=== PATIENT | male | born 1945 | race Caucasian/White ===

== ENCOUNTER 2016-07-23 10:39 | Day surgery (SDC) | payer BC ==
[~2016-07-23 10:39] MED LIST: Buffered Lidocaine 1% SYR 3ML* 3 ML/SYR SYRINGE INTRADERM ONE; Famotidine IV* 10 MG/ML 2 ML (20 mg) IV ONE; Morphine INJ* 2 MG/ML 1 ML CARPUJECT IV PRN; PROCHLORPERAZINE INJ 5 MG/ML 2 ML VIAL IV PRN; fentaNYL* 50 MCG/ML 2 ML VIAL (100 MCG VIAL) IV PRN; oxyCODONE/Acetamin 5/325 MG* TAB PO PRN
[2016-07-23] MEDS ORDERED: ceFAZolin 2 GM PREMIX (*) 2 GM/50 ML BAG IVPB ONE (11:00)
[2016-07-23] MEDS ORDERED: Famotidine IV* 10 MG/ML 2 ML (20 mg) ONE (11:00)
[2016-07-23] MEDS ORDERED: Midazolam* 1 MG/ML 5 ML VIAL (5 MG) ONE (11:21)
[2016-07-23] MEDS ORDERED: fentaNYL* 50 MCG/ML 5 ML VIAL (250 MCG VIAL) ONE (11:21)
[2016-07-23] MEDS ORDERED: KETAMINE HCL* 50 MG/ML 10 ML VIAL ONE (11:21)
[2016-07-23] MEDS ORDERED: Bupivacaine 0.5% W/EPI SDV* 30 ML VIAL ONE (12:01)
[2016-07-23] MEDS ORDERED: Propofol* 10 MG/ML 20 ML BTL IV PUSH ONE (12:24)
[2016-07-23] MEDS ORDERED: Lidocaine 2% PF * 5 ML VIAL ONE (12:24)
[2016-07-23] MEDS ORDERED: Ondansetron INJ* 2 MG/ML VIAL ONE (12:24)
[2016-07-23] MEDS ORDERED: PROCHLORPERAZINE INJ 5 MG/ML 2 ML VIAL ONE (12:24)
[2016-07-23] MEDS ORDERED: Glycopyrrolate IV* 0.2 MG/ML 1 ML VIAL ONE ×2 (12:24→12:56)
[2016-07-23] MEDS ORDERED: Neostigmine Methylsulfate* 2 MG/2 ML SYRINGE ONE (12:24)
[2016-07-23] MEDS ORDERED: Metoprolol Tartrate IV* 1 MG/ML 5 ML VIAL ONE (12:25)
[2016-07-23] MEDS ORDERED: EPHEDrine (Pressors)* 50 MG/ML VIAL ONE (12:42)
[2016-07-23] MEDS ORDERED: Ketorolac INJ* 30 MG/ML 1 ML VIAL ONE (12:57)
[2016-07-23] MEDS ORDERED: Morphine INJ* 10 MG/ML 1 ML CARPUJECT ONE (13:04)
[2016-07-23] MEDS ORDERED: hydrALAZINE IV* 20 MG/ML VIAL ONE (13:16)
[2016-07-23] MEDS ORDERED: Insulin REGULAR(*) 1 UNITS UNIT SUBCUT ONE (13:39)
[2016-07-23] MEDS ORDERED: Insulin REGULAR(*) 1 UNITS UNIT ONE (13:41)
--- NOTE | 2016-07-23 14:25 | PN ---
Progress Note - Progress Note Note: Brief Operative Note: Preop dx: symptomatic cholelithiasis Postop dx: same Procedure: laparascopic cholecystectomy Anesthesia: GET Surgeon: Shoaib Asst: TRACY Prado; BARRETT Pisano EBL: < 100 ml fluids: drains: none findings: dictated
[2016-07-23] MEDS ORDERED: oxyCODONE/Acetamin 5/325 MG* TAB ONE (15:03)
[2016-07-23 15:42] VITALS: BP 138/60
--- NOTE | 2016-07-24 23:19 | OP ---
DATE OF OPERATION: 07/23/16 - [facility] DATE OF : 47 SURGEON: Ned Cramer MD METAL FINISH INSPECTOR: TRACY Grier ANESTHESIOLOGIST: Gómez Weeks MD ANESTHESIA: General endotracheal. PRE-OP DIAGNOSIS: Symptomatic gallstones. POST-OP DIAGNOSIS: Symptomatic gallstones. OPERATIVE PROCEDURE: Laparoscopic cholecystectomy. ESTIMATED BLOOD LOSS: Minimal. IV FLUIDS: Crystalloid. SPECIMENS: Gallbladder and contents. DRAINS: None. COMPLICATIONS: None. COUNTS: The instrument, needle, and sponge counts were correct. DESCRIPTION OF PROCEDURE: The patient was brought to the operating room and placed on the table supine. Sequential compression devices were placed in both lower extremities. General anesthesia was administered. The abdomen was prepped and draped in the usual sterile fashion. Time-out was performed. Local anesthetic was infiltrated into the skin and soft tissue prior to making each incision. Entry to the abdomen was through a transumbilical vertical incision accommodating a 5-mm optical trocar. After accessing the peritoneal cavity, carbon dioxide was insufflated to a pressure of 15 mmHg. Under direct visualization, a 5- mm trocar was placed in the subxiphoid position and two 5- mm trocars were placed in the right upper quadrant. The gallbladder was noted to be distended and large, but no acute changes. The gallbladder fundus was grasped and retracted superiorly and the infundibulum was retracted laterally and inferiorly and the peritoneum investing the gallbladder was incised using a combination of sharp dissection. The peritoneum was incised along the medial and lateral aspects of the infundibulum and the dissection proceeded to identify the infundibulocystic duct junction. Additionally, the cystic artery was dissected out bluntly and after each structure was well identified, a critical view obtained, the structures were each doubly clipped and divided and the gallbladder was then grasped at the cystic duct stump and retracted superiorly and the hook cautery was used to divide the gallbladder from its attachments to the liver bed. Most of the gallbladder was freed and it was placed in the endoscopic retrieval bag and retrieved through the subxiphoid port site. The inspection of the liver bed revealed hemostasis to be excellent. Lavage of the abdomen was performed until clear. The clips were noted to be intact and hemostatic. Ports were removed under direct visualization. Carbon dioxide was released. The incisions were all closed with 4-0 Monocryl to approximate the skin in a subcuticular fashion, and Steri- Strips were applied. The patient tolerated the procedure well, was extubated, and transferred to recovery room in stable condition. CC: Trey Irizarry MD* [id number]/[facility] #: [id number] MTDD
== END 2016-07-23 16:40 | disposition home or self-care (01) ==
LOC: OR 10:39
PROVIDERS: ATTEND Surgery
DX: K80.10 Calculus of gallbladder with chronic cholecystitis without obstruction (principal); E11.8 Type 2 diabetes mellitus with unspecified complications; Z79.84 Long term (current) use of oral hypoglycemic drugs; I25.10 Atherosclerotic heart disease of native coronary artery without angina pectoris; Z95.5 Presence of coronary angioplasty implant and graft; I10 Essential (primary) hypertension; E03.9 Hypothyroidism, unspecified
CPT/HCPCS: 88304; A9270-GY; J0360; J0690; J0780; J1885; J2250; J2270; J2405; J2704; J3010; J3490

== ENCOUNTER 2017-04-29 11:57 | Day surgery (SDC) | payer BC ==
[~2017-04-29 11:57] MED LIST changes: +Buffered Lidocaine 0.9% SYRIN* 5 ML/SYR SYRINGE INTRADERM ONE; -Buffered Lidocaine 1% SYR 3ML* 3 ML/SYR SYRINGE INTRADERM ONE; -Famotidine IV* 10 MG/ML 2 ML (20 mg) IV ONE; -Morphine INJ* 2 MG/ML 1 ML CARPUJECT IV PRN; -PROCHLORPERAZINE INJ 5 MG/ML 2 ML VIAL IV PRN; -fentaNYL* 50 MCG/ML 2 ML VIAL (100 MCG VIAL) IV PRN; -oxyCODONE/Acetamin 5/325 MG* TAB PO PRN
[2017-04-29] MEDS ORDERED: ceFAZolin 2 GM PREMIX (*) 2 GM/50 ML BAG IVPB ONE (12:05)
[2017-04-29] MEDS ORDERED: Buffered Lidocaine 0.9% SYRIN* 5 ML/SYR SYRINGE ONE (12:05)
[2017-04-29] MEDS ORDERED: Lidocaine 1% MPF wEPI 200,000* 30 ML SDV ONE (14:51)
[2017-04-29] MEDS ORDERED: Methylene Blue 0.5 %* 50 MG/10 ML AMP IV ONE (14:51)
[2017-04-29] MEDS ORDERED: Mineral Oil Sterile, TOPICAL* 25 ML BTL ONE (14:51)
[2017-04-29] MEDS ORDERED: Bupivacaine 0.25% SDV* 30 ML ONE (14:52)
[2017-04-29] MEDS ORDERED: Midazolam* 1 MG/ML 2 ML VIAL (2 MG) ONE (15:11)
[2017-04-29] MEDS ORDERED: fentaNYL* 50 MCG/ML 2 ML VIAL (100 MCG VIAL) ONE (15:11)
[2017-04-29] MEDS ORDERED: Propofol* 10 MG/ML 20 ML BTL IV PUSH ONE (15:16)
[2017-04-29 17:28] VITALS: BP 151/58
== END 2017-04-29 17:29 | disposition home or self-care (01) ==
LOC: OR 11:57
PROVIDERS: ATTEND Plastic Surgery
DX: C44.42 Squamous cell carcinoma of skin of scalp and neck (principal); E11.8 Type 2 diabetes mellitus with unspecified complications; Z79.84 Long term (current) use of oral hypoglycemic drugs; I25.10 Atherosclerotic heart disease of native coronary artery without angina pectoris; I12.9 Hypertensive chronic kidney disease with stage 1 through stage 4 chronic kidney disease, or unspecified chronic kidney disease; Z95.5 Presence of coronary angioplasty implant and graft; G47.33 Obstructive sleep apnea (adult) (pediatric); Z85.828 Personal history of other malignant neoplasm of skin; E03.9 Hypothyroidism, unspecified; N18.9 Chronic kidney disease, unspecified; Z87.891 Personal history of nicotine dependence
CPT/HCPCS: 88305; 88329; A9270-GY; J0690; J2001; J2250; J2704; J3010

== ENCOUNTER 2017-09-06 16:26 | Emergency (ER) | payer BC ==
[2017-09-06 16:52] VITALS: BP 144/70
--- NOTE | 2017-09-06 17:13 | UC ---
General HPI - HPI Summary HPI Summary: c/o vomiting and diarrhea since this morning, has vomited about 4 times, last episode 90 min ago and diarrhea maybe a dozen times. He states he feels thirsty but has not attempted to take more liquids due t o fear of vomiting again. Urine has been clear. Denies fever or any prodrome symptoms yesterday except that he ate in a restaurant for lunch and have take out for dinner. is not affected. - History of Current Complaint Chief Complaint: UCGI Stated Complaint: VOMITING,DIARRHEA Time Seen by Provider: 09/06/17 17:03 Hx Obtained From: Patient, Family/Commercial Analyst Onset/Duration: Sudden Onset, Lasting Hours Timing: Intermittent Episodes Lasting: - vomiting and diarrhea Onset Severity: Moderate Current Severity: Mild Pain Intensity: 0 Associated Signs & Symptoms: Positive: Diarrhea, Vomiting - Allergy/Home Medications Allergies/Adverse Reactions: Allergies Allergy/AdvReac Type Severity Reaction Status Date / Time Calcium Channel Blocking Allergy Swelling Verified 09/06/17 16:53 Agent Dilt clonidine Allergy Unknown Verified 09/06/17 16:53 Reaction Details niacin Allergy Muscle Ache Verified 09/06/17 16:53 PMH/Surg Hx/FS Hx/Imm Hx Previously Healthy: Yes Endocrine History: Diabetes, Hypothyroidism, Dyslipidemia Cardiovascular History: Hypertension - Surgical History Surgical History: Yes Surgery Procedure, Year, and Place: Fractured pelvis as a child 1962.; Heart Cath 07/29/01 and 3 stents. appendectomy in 1963 GALLBLADDER REMOVED 07/2016 - Social History Alcohol Use: Occasionally Substance Use Type: None Smoking Status (MU): Former Smoker Amount Used/How Often: smoked for approx 30 years 1-2ppd When Did the Patient Quit Smoking/Using Tobacco: 30 years ago - Immunization History Most Recent Influenza Vaccination: 2012 Most Recent Tetanus Shot: within last couple years Most Recent Pneumonia Vaccination: last year Review of Systems Constitutional: Negative Gastrointestinal: Vomiting, Diarrhea All Other Systems Reviewed And Are Negative: Yes Physical Exam Triage Information Reviewed: Yes Appearance: Well-Appearing, No Pain Distress, Obese Vital Signs: Initial Vital Signs Temp 98.1 F 09/06/17 16:47 Pulse 77 09/06/17 16:47 Resp 16 09/06/17 16:47 BP 144/70 09/06/17 16:47 Pulse Ox 97 09/06/17 16:47 Vital Signs Reviewed: Yes Eyes: Positive: Conjunctiva Clear ENT: Positive: Hearing grossly normal, Pharynx normal, TMs normal Neck: Positive: Supple, Nontender, No Lymphadenopathy Respiratory: Positive: Chest non-tender, Lungs clear, Normal breath sounds, No respiratory distress Cardiovascular: Positive: RRR, Pulses Normal, Brisk Capillary Refill, Other: - systolic murmur II/ Abdomen Description: Positive: Nontender, No Organomegaly, Soft Bowel Sounds: Positive: Present Course/Dx - Course Course Of Treatment: PO Fluids challenge given, patient tolerated well, denies nausea and states it satiated his thirst. Continue oral hydration at home, start liquid diet followed by bland diet, avoid caffeine or dairy - Differential Dx - Multi-Symptom Provider Diagnoses: gastroenteritis Discharge - Sign-Out/Discharge Documenting (check all that apply): Discharge - Discharge Plan Condition: Stable Disposition: HOME Patient Education Materials: Dehydration (ED), Gastroenteritis (ED) Referrals: Trey Irizarry MD [Primary Care Provider] - - Billing Disposition and Condition Condition: STABLE Disposition: HOME
== END 2017-09-06 18:33 | disposition home or self-care (01) ==
LOC: UCEAST 16:26
DX: K52.9 Noninfective gastroenteritis and colitis, unspecified (principal); E11.9 Type 2 diabetes mellitus without complications; Z79.84 Long term (current) use of oral hypoglycemic drugs; E03.9 Hypothyroidism, unspecified; E78.5 Hyperlipidemia, unspecified; I10 Essential (primary) hypertension; Z88.8 Allergy status to other drugs, medicaments and biological substances; Z87.891 Personal history of nicotine dependence
CPT/HCPCS: 99211; G0463

== ENCOUNTER 2017-12-29 14:12 | Emergency (ER) | payer BC ==
[2017-12-29 14:19] VITALS: BP 157/70
[2017-12-29] MEDS ORDERED: Ondansetron ODT TAB* 4 MG PO ONE (14:37)
--- NOTE | 2017-12-29 14:51 | UC ---
General HPI - HPI Summary HPI Summary: This is kerry Rivas documenting for attending Sidney Gooden MD. This patient is a 72 year old M presenting to [facility] accompanied by with a chief complaint of vomiting that began at 0700 today. The patient rates the pain 0/10 in severity. Symptoms aggravated by eating. Symptoms alleviated by nothing. Patient denies abd pain, lightheadedness, and CP. Pt reports having similar symptoms previously after consuming spicy food. - History of Current Complaint Chief Complaint: UCGI Stated Complaint: ABDOMINAL COMPLAINT Time Seen by Provider: 12/29/17 14:26 Hx Obtained From: Patient Onset/Duration: Sudden Onset, Lasting Hours, Still Present Timing: Constant Onset Severity: Mild Current Severity: Mild Pain Intensity: 0 Associated Signs & Symptoms: Positive: Vomiting, Other - Negative lightheadedness. Negative: Abdominal Pain, Chest Pain - Allergy/Home Medications Allergies/Adverse Reactions: Allergies Allergy/AdvReac Type Severity Reaction Status Date / Time Calcium Channel Blocking Allergy Swelling Verified 12/29/17 14:19 Agent Dilt clonidine Allergy Unknown Verified 12/29/17 14:19 Reaction Details niacin Allergy Muscle Ache Verified 12/29/17 14:19 PMH/Surg Hx/FS Hx/Imm Hx Previously Healthy: No Endocrine History: Diabetes GI/ History: Gastroesophageal Reflux - Surgical History Surgical History: Yes Surgery Procedure, Year, and Place: Fractured pelvis as a child 1962.; Heart Cath 07/29/01 and 3 stents. appendectomy in 1963 GALLBLADDER REMOVED 07/2016 - Family History Known Family History: Positive: Other - Negative anesthesia reaction - Social History Occupation: Employed Full-time Lives: With Family Alcohol Use: Occasionally Substance Use Type: None Smoking Status (MU): Former Smoker Amount Used/How Often: smoked for approx 30 years 1-2ppd When Did the Patient Quit Smoking/Using Tobacco: 30 years ago - Immunization History Most Recent Influenza Vaccination: 2013 Most Recent Tetanus Shot: within last couple years Most Recent Pneumonia Vaccination: last year Review of Systems Cardiovascular: Other - Negative CP Gastrointestinal: Vomiting, Other - Negative abd pain Neurological: Other - Negative lightheadedness All Other Systems Reviewed And Are Negative: Yes Physical Exam - Summary Physical Exam Summary: General: well-appearing, no pain distress Skin: warm, color reflects adequate perfusion, dry Head: normal Eyes: EOMI, JUANITA ENT: normal Neck: supple, nontender Respiratory: CTA, breath sounds present Cardiovascular: RRR Abdomen: soft, nontender Bowel: present Musculoskeletal: normal, strength/ROM intact Neurological: sensory/motor intact, A&O x3 Psychological: affect/mood appropriate Triage Information Reviewed: Yes Vital Signs: Initial Vital Signs Temp 97.8 F 12/29/17 14:16 Pulse 70 12/29/17 14:16 Resp 18 12/29/17 14:16 BP 157/70 12/29/17 14:16 Pulse Ox 99 12/29/17 14:16 Vital Signs Reviewed: Yes Course/Dx - Course Course Of Treatment: ABD SOFT AND NON TENDER ON EXAM. F/U PMD IF NOT COMPLETELY IMPROVED; RECHECK SOONER IF WORSE. - Differential Dx - Multi-Symptom Provider Diagnoses: vomiting and nausea Discharge - Sign-Out/Discharge Documenting (check all that apply): Patient Departure - Discharge Plan Condition: Stable Disposition: HOME Prescriptions: Omeprazole CAP* [Prilosec CAP* 20 MG] 20 mg PO BID #30 cap.dr Ondansetron ODT TAB* [Zofran 4 MG Odt TAB*] 4 mg PO Q6H PRN #10 tab.odt PRN Reason: Nausea Patient Education Materials: Acute Nausea and Vomiting (ED) Referrals: Trey Irizarry MD [Primary Care Provider] - Additional Instructions: FOLLOW UP WITH YOUR DOCTOR. GET RECHECKED FOR ANY WORSENING OF YOUR CONDITION; PAIN, FEVER, DEHYDRATION, YOU FEEL ILL OR QUESTIONS OR CONCERNS. - Billing Disposition and Condition Condition: STABLE Disposition: Home
== END 2017-12-29 14:50 | disposition home or self-care (01) ==
LOC: UCEAST 14:12
DX: R11.2 Nausea with vomiting, unspecified (principal); Z88.8 Allergy status to other drugs, medicaments and biological substances; E11.9 Type 2 diabetes mellitus without complications; Z87.891 Personal history of nicotine dependence
CPT/HCPCS: 99212; A9270-GY; G0463

== ENCOUNTER 2018-04-10 18:25 | Emergency (ER) | payer BC ==
[2018-04-10 19:31] VITALS: BP 121/67
[2018-04-10] MEDS ORDERED: Al Hydrox/Mg Hydrox/Simet LIQ* 30 ML UDC PO ONE (20:52)
[2018-04-10] MEDS ORDERED: Lidocaine 2% VISCOUS* 15 ML UDC PO ONE (20:53)
--- NOTE | 2018-04-10 21:04 | UC ---
Abdominal Pain Male HPI - HPI Summary HPI Summary: ONSET OF EPIGASTRIC BURNING, NAUSEA EARLY THIS MORNING. AROUND 7 AM HAD ONE EPISODE OF EMESIS. TOOK A ZOFRAN WHICH HELPED. ATE LIGHTLY THROUGHOUT THE DAY BUT AT 4:00PM AFTER EATING A BOWL OF SOUP HAD ANOTHER EPISODE OF EMESIS. BURNING EPIGASTRIC DISCOMFORT AND BITTER TASTE IN MOUTH HAS PERSISTED THROUGHOUT THE DAY. PATIENT HAS HAD SIMILAR SYMPTOMS INTERMITTENTLY EVERY WEEK OR SO FOR THE PAST SEVERAL MONTHS. DENIES CHEST PAIN, SHORTNESS OF BREATH, ARM PAIN, DIZZINESS. SYMPTOMS SEEM TO BE WORSENED BY SPECIFIC TYPES OF FOOD. - History of Current Complaint Chief Complaint: UCGI Stated Complaint: VOMITING Time Seen by Provider: 04/10/18 20:30 Hx Obtained From: Patient, Family/English Division Chair - Onset/Duration: Gradual Onset, Lasting Hours, Still Present Timing: Constant Severity Initially: Mild Severity Currently: Moderate Pain Intensity: 3 Pain Scale Used: 0-10 Numeric Location: Discrete At: RUQ, Epigastric Radiates: No Character: Burning Aggravating Factor(s): Food Alleviating Factor(s): Meds - ZOFRAN Associated Signs And Symptoms: Positive: Nausea, Vomiting. Negative: Fever, Cough, Chest Pain, Dizzy, Back Pain, Constipation, Blood in Stool, Urinary Symptoms, Diarrhea - Allergies/Home Medications Allergies/Adverse Reactions: Allergies Allergy/AdvReac Type Severity Reaction Status Date / Time Calcium Channel Blocking Allergy Swelling Verified 04/10/18 19:31 Agent Dilt clonidine Allergy Unknown Verified 04/10/18 19:31 Reaction Details niacin Allergy Muscle Ache Verified 04/10/18 19:31 Home Medications: Home Medications Famotidine TAB* [Pepcid 20 MG TAB*] 20 mg PO BID PRN 04/10/18 [History Confirmed 04/10/18] PMH/Surg Hx/FS Hx/Imm Hx Endocrine History: Diabetes, Hypothyroidism Cardiovascular History: Cardiac Disease - S/P STENTS, Hypertension Other Cancer History: SKIN - Surgical History Surgical History: Yes Surgery Procedure, Year, and Place: Fractured pelvis as a child 1962.; Heart Cath 07/29/01 and 3 stents. appendectomy in 1963 GALLBLADDER REMOVED 07/2016 - Family History Known Family History: Positive: Hypertension, Other - Negative anesthesia reaction - Social History Alcohol Use: Rare Substance Use Type: None Smoking Status (MU): Former Smoker Amount Used/How Often: smoked for approx 30 years 1-2ppd When Did the Patient Quit Smoking/Using Tobacco: 30 years ago - Immunization History Most Recent Influenza Vaccination: 2013 Most Recent Tetanus Shot: within last couple years Most Recent Pneumonia Vaccination: last year Review of Systems Constitutional: Negative Skin: Negative Respiratory: Negative Cardiovascular: Negative Gastrointestinal: Abdominal Pain, Vomiting, Nausea Genitourinary: Negative All Other Systems Reviewed And Are Negative: Yes Physical Exam Triage Information Reviewed: Yes Appearance: Well-Appearing, No Pain Distress, Well-Nourished Vital Signs: Initial Vital Signs Temp 97.9 F 04/10/18 19:23 Pulse 73 04/10/18 19:23 Resp 16 04/10/18 19:23 BP 121/67 04/10/18 19:23 Pulse Ox 100 04/10/18 19:23 Vital Signs Reviewed: Yes Eyes: Positive: Conjunctiva Clear ENT: Positive: Hearing grossly normal, Pharynx normal Neck: Positive: Supple Respiratory Exam: Normal Cardiovascular Exam: Normal Abdomen Description: Positive: Soft, Other: - MILDLY TENDER RUQ/EPIGASTRIUM. Negative: CVA Tenderness (R), CVA Tenderness (L), Distended, Guarding Bowel Sounds: Positive: Present Musculoskeletal: Positive: No Edema Neurological: Positive: Alert Psychological: Positive: Normal Response To Family, Age Appropriate Behavior Skin: Negative: rashes Re-Evaluation - Re-Evaluation First Eval Re-Evaluation Time: 21:27 - FEELS A BIT BETTER AFTER GI COCKTAIL. READY FOR D/C Change: Improved Abd Pain Male Course/Dx - Course Course Of Treatment: FELT IMPROVED AFTET GI COCKTAIL. ERX FOR PPI AND ZOFRAN. FOLLOW-UP GI. GO TO ED IF SX WORSEN. - Differential Dx/Clinical Impression Provider Diagnoses: GERD Discharge - Sign-Out/Discharge Documenting (check all that apply): Patient Departure All imaging exams completed and their final reports reviewed: No Studies - Discharge Plan Condition: Stable Disposition: HOME Prescriptions: Omeprazole 40 mg PO DAILY #30 capsule. Ondansetron ODT TAB* [Zofran Odt TAB*] 4 mg PO Q6H PRN #20 tab.odt PRN Reason: Nausea/Vomiting Patient Education Materials: Gastroesophageal Reflux Disease (ED) Referrals: Trey Irizarry MD [Primary Care Provider] - Additional Instructions: YOUR SYMPTOMS ARE CONSISTENT WITH REFLUX. TAKE THE REFLUX MEDICINE IN THE MORNING (IDEALLY AT LEAST 30 MINUTES BEFORE YOU EAT). EAT SLOWLY. STAY UPRIGHT AT LEAST 30 MINUTES AFTER EATING. EAT SMALLER, MORE FREQUENT MEALS OPPOSED TO LARGE INFREQUENT MEALS. AVOID POSSIBLE TRIGGER FOODS - GREASY, SPICY, ACIDIC FOODS. CAFFEINE, ALCOHOL. FOLLOW-UP WITH GI. [facility] Address: [address], [place] [address] GO TO THE ED WITHOUT FAIL IF YOU DEVELOP WORSENING ABDOMINAL PAIN, PERSISTENT NAUSEA, CHEST PAIN, TROUBLE BREATHING OR ANY OTHER CONCERNING SYMPTOMS. - Billing Disposition and Condition Condition: STABLE Disposition: Home
== END 2018-04-10 21:41 | disposition home or self-care (01) ==
LOC: UCEAST 18:25
DX: K21.9 Gastro-esophageal reflux disease without esophagitis (principal); E11.9 Type 2 diabetes mellitus without complications; I10 Essential (primary) hypertension; Z88.8 Allergy status to other drugs, medicaments and biological substances; Z95.5 Presence of coronary angioplasty implant and graft; Z87.891 Personal history of nicotine dependence
CPT/HCPCS: 99212; A9270-GY; G0463

== ENCOUNTER 2018-06-21 21:10 | Emergency (ER) | payer BC ==
[2018-06-21 21:30] VITALS: BP 138/54
[2018-06-21] MEDS ORDERED: Ondansetron ODT TAB* 4 MG PO ONE (21:38)
--- NOTE | 2018-06-21 21:43 | UC ---
Abdominal Pain Male HPI - HPI Summary HPI Summary: The patient is a 72-year-old male that developed the onset of lower abdominal pain and nausea, vomiting bout 2 PM today. He states he has had at least 20 episodes of vomiting. He is also had 3 episodes of diarrhea. He denies any blood in his vomitus or diarrhea. He has not had any fever. He has had some chills. He feels weak and dizzy currently. He states that he had his gallbladder removed and July of last year. Had an appendectomy. He had an EGD in April of last year and it showed some acid reflux. He took some Zofran but this did not help today. - History of Current Complaint Chief Complaint: UCGeneralIllness Stated Complaint: VOMTING Time Seen by Provider: 06/21/18 21:28 Hx Obtained From: Patient Onset/Duration: Sudden Onset, Lasting Hours Timing: Constant Severity Initially: Moderate Severity Currently: None Pain Intensity: 0 Pain Scale Used: 0-10 Numeric Location: Other - Has had band like lower abd pain (below umbilicus) Radiates: No Character: Cramping Aggravating Factor(s): Food Associated Signs And Symptoms: Positive: Dizzy, Decreased Appetite, Nausea, Vomiting - x20, Diarrhea - x3. Negative: Diaphoresis, Fever, Cough, Chest Pain , Back Pain, Constipation, Blood in Stool, Urinary Symptoms - Allergies/Home Medications Allergies/Adverse Reactions: Allergies Allergy/AdvReac Type Severity Reaction Status Date / Time clonidine Allergy Unknown Verified 06/21/18 21:19 Reaction Details diltiazem Allergy Swelling Verified 06/21/18 21:19 niacin Allergy Muscle Ache Verified 06/21/18 21:19 Home Medications: Home Medications Spironolactone TAB* [Aldactone TAB*] 25 mg PO DAILY 06/21/18 [History Confirmed 06/21/18] PMH/Surg Hx/FS Hx/Imm Hx Previously Healthy: Yes Endocrine History: Diabetes Cardiovascular History: Hypertension GI/ History: Gastroesophageal Reflux - Surgical History Surgical History: Yes Surgery Procedure, Year, and Place: Fractured pelvis as a child 1962.; Heart Cath 07/29/01 and 3 stents. appendectomy in 1963 GALLBLADDER REMOVED 07/2016. EGD - 04/26/2018 - Family History Known Family History: Positive: Hypertension, Other - Negative anesthesia reaction - Social History Alcohol Use: Occasionally Substance Use Type: None Smoking Status (MU): Former Smoker Amount Used/How Often: smoked for approx 30 years 1-2ppd When Did the Patient Quit Smoking/Using Tobacco: 30 years ago - Immunization History Most Recent Influenza Vaccination: 2012 Most Recent Tetanus Shot: within last couple years Most Recent Pneumonia Vaccination: last year Review of Systems All Other Systems Reviewed And Are Negative: Yes Constitutional: Positive: Negative Skin: Positive: Negative Eyes: Positive: Negative ENT: Positive: Negative Respiratory: Positive: Negative Cardiovascular: Positive: Negative Gastrointestinal: Positive: Abdominal Pain, Vomiting, Diarrhea, Nausea Genitourinary: Positive: Negative Motor: Positive: Negative Neurovascular: Positive: Negative Musculoskeletal: Positive: Negative Neurological: Positive: Negative Psychological: Positive: Negative Physical Exam Triage Information Reviewed: Yes Appearance: Well-Nourished, Ill-Appearing Vital Signs: Initial Vital Signs Temp 97.4 F 06/21/18 21:22 Pulse 78 06/21/18 21:22 Resp 16 06/21/18 21:22 BP 138/54 06/21/18 21:22 Pulse Ox 99 06/21/18 21:22 Eyes: Positive: Conjunctiva Clear ENT: Negative: Hearing grossly normal, Nasal congestion, Nasal drainage, Trismus , Muffled voice, Hoarse voice Neck: Positive: Supple Respiratory: Positive: Lungs clear, Normal breath sounds, No respiratory distress, No accessory muscle use Cardiovascular: Positive: RRR, No Murmur Abdomen Description: Positive: Soft. Negative: Nontender - RUQ tenderness, Bruit, CVA Tenderness (R), CVA Tenderness (L) Bowel Sounds: Positive: Hyperactive Musculoskeletal: Positive: ROM Intact, No Edema Neurological: Positive: Alert Psychological Exam: Normal Skin Exam: Normal Diagnostics - Laboratory Diagnostic Studies Completed/Ordered: FS 184. UA +1 protein - EKG Cardiac Rate: NL Cardiac Rhythm: Sinus: Normal Ectopy: None ST Segment: Normal Abd Pain Male Course/Dx - Course Course Of Treatment: no improvement with zofran. advised to go to ER for evaluation and care. declined EMS transport - Differential Dx/Clinical Impression Provider Diagnosis: Intractable vomiting Discharge - Sign-Out/Discharge Documenting (check all that apply): Patient Departure All imaging exams completed and their final reports reviewed: No Studies - Discharge Plan Condition: Guarded Disposition: HOME-RECOMMEND TO ED Patient Education Materials: Acute Nausea and Vomiting (ED) Referrals: Trey Irizarry MD [Primary Care Provider] - Additional Instructions: I suggest you go directly to the ER for evaluation and treatment of your symptoms - Billing Disposition and Condition Condition: GUARDED Disposition: Home-Recommend to ED
== END 2018-06-21 22:02 | disposition home or self-care (01) ==
LOC: UCEAST 21:10
DX: R11.10 Vomiting, unspecified (principal); E11.9 Type 2 diabetes mellitus without complications; I10 Essential (primary) hypertension; Z87.891 Personal history of nicotine dependence
CPT/HCPCS: 81003; 93005; 99212; A9270-GY; G0463

== ENCOUNTER 2019-04-02 03:54 | Emergency (ER) | payer BC ==
[2019-04-02 04:00] VITALS: BP 147/63
--- NOTE | 2019-04-02 04:21 | ED ---
GI/ HPI - HPI Summary HPI Summary: This pt is a 73 Y/O M presenting to [facility] with a CC of a possible UTI. He states that he has had increased frequency with intermittent dysuria and has had a fever at 102 F since yesterday 04/01/19. He states that he also has chronic hip pain for which he sees a chiropracter. He denies any new cough, headaches, SOB, and N/V. He has been taking Ibuprofen for alleviation and has had no aggravating factors. He has a PMHx of Thyroid complications, CAD, and diabetes. - History of Current Complaint Chief Complaint: EDUrogenitalProblems Time Seen by Provider: 04/02/19 04:09 Stated Complaint: UTI PER PT Hx Obtained From: Patient Onset/Duration: Started Days Ago - 1, Still Present Timing: Constant Current Severity: None Pain Intensity: 0 Associated Signs and Symptoms: Positive: Negative - cough, headaches, SOB, and N /V, Fever - 102 F, Dysuria, Cough, Other: - Increased frequency. Negative: Nausea, Vomiting Aggravating Factor(s): Nothing Alleviating Factor(s): Nothing - Allergy/Home Medications Allergies/Adverse Reactions: Allergies Allergy/AdvReac Type Severity Reaction Status Date / Time clonidine Allergy Unknown Verified 04/02/19 04:00 Reaction Details diltiazem Allergy Swelling Verified 04/02/19 04:00 niacin Allergy Muscle Ache Verified 04/02/19 04:00 PMH/Surg Hx/FS Hx/Imm Hx Previously Healthy: Yes Endocrine/Hematology History: Reports: Hx Diabetes - TYPE 2, Hx Thyroid Disease Cardiovascular History: Reports: Hx Angioplasty, Hx Coronary Artery Disease - 3 cardiac stents 2001, 1 replaced 2001, Hx Hypercholesterolemia, Hx Hypertension, Hx Valvular Heart Disease Denies: Hx Congestive Heart Failure Respiratory History: Reports: Hx Sleep Apnea Denies: Hx Asthma, Hx Chronic Obstructive Pulmonary Disease (COPD) GI History: Reports: Hx Gastroesophageal Reflux Disease, Other GI Disorders - gallbladder disease with gall stones Denies: Hx Ulcer Musculoskeletal History: Reports: Other Musculoskeletal History - plantar fascitiis (left) Sensory History: Reports: Hx Cataracts, Hx Contacts or Glasses, Hx Glaucoma, Hx Hearing Aid - RARELY WEARS THEM, 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 appendectomy in 1964 GALLBLADDER REMOVED 07/2016. EGD - 04/26/2018 Hx Anesthesia Reactions: No Infectious Disease History: No Infectious Disease History: Reports: Hx Shingles Denies: Hx Hepatitis, Hx Human Immunodeficiency Virus (HIV), Traveled Outside the [place] in Last 30 Days - Family History Known Family History: Positive: Hypertension, Other - Negative anesthesia reaction - Social History Occupation: Employed Part-time Lives: With Family Alcohol Use: Occasionally Hx Substance Use: No Substance Use Type: Reports: None Hx Tobacco Use: Yes Smoking Status (MU): Former Smoker Amount Used/How Often: smoked for approx 30 years 1-2ppd Review of Systems Positive: Fever - 102 F Positive: Shortness Of Breath, Cough Negative: Vomiting, Nausea Positive: dysuria Musculoskeletal: Other - Hip pain Negative: Headache All Other Systems Reviewed And Are Negative: Yes Physical Exam - Summary Physical Exam Summary: Constitutional: Well-developed, Well-nourished, Alert. (-) Distressed Skin: Warm, Dry HENT: Normocephalic; Atraumatic Eyes: Conjunctiva normal Neck: Musculoskeletal ROM normal neck. (-) JVD, (-) Stridor, (-) Nuchal rigidity Cardio: Rhythm regular, rate normal, Heart sounds normal; Intact distal pulses; Radial pulses are 2+ and symmetric. (-) Murmur Pulmonary/Chest wall: Effort normal. (-) Respiratory distress, (-) Wheezes, (-) Rales Abd: Soft, (-) tenderness, (-) Distension, (-) Guarding, (-) Rebound Musculoskeletal: (-) Edema, full ROM of L hip w/o tenderness or erythema Lymph: (-) Cervical adenopathy Neuro: Alert, Oriented x3 Psych: Mood and affect Normal Triage Information Reviewed: Yes Vital Signs On Initial Exam: Initial Vitals Temp Pulse Resp BP Pulse Ox 98.8 F 91 18 147/63 95 04/02/19 03:57 04/02/19 03:57 04/02/19 03:57 04/02/19 03:57 04/02/19 03:57 Vital Signs Reviewed: Yes Procedures - Sedation Patient Received Moderate/Deep Sedation with Procedure: No Diagnostics - Vital Signs Vital Signs Temp Pulse Resp BP Pulse Ox 04/02/19 03:57 98.8 F 91 18 147/63 95 - Laboratory Result Diagrams: 04/02/19 04:13 04/02/19 04:13 Lab Statement: Any lab studies that have been ordered have been reviewed, and results considered in the medical decision making process. Re-Evaluation - Re-Evaluation First Eval Re-Evaluation Time: 04:30 Comment: WBC 17, patient given ceftriaxone for presumed UTI. Second Eval Re-Evaluation Time: 06:30 Change: Improved - UA w 3+ LE. Patient has improved, has been tolerating PO, discussed with patient because he is well-appearing, tolerating by mouth and no signs of infection aside from elevated white count, he can go home. Patient is to return for worsening symptoms including decreased UOP, fevers, abdominal pain , nausea vomiting. GIGU Course/Dx - Course Course Of Treatment: 73-year-old male with a history of hypertension, coronary artery disease, thyroid problems who presents with fever and urinary frequency and burning. Physical exam well-appearing, no abdominal tenderness. We'll check labs, including CBC to assess for infection, UA. No flank tenderness. Hip w/o tenderness, erythema and full ROM do not suspect septic joint. - Diagnoses Provider Diagnoses: Pyelonephritis, UTI (urinary tract infection) Discharge ED - Sign-Out/Discharge Documenting (check all that apply): Patient Departure - discharge - Discharge Plan Condition: Stable Disposition: HOME Prescriptions: Cephalexin CAP* [Keflex CAP*] 500 mg PO QID 10 Days #40 cap Patient Education Materials: Kidney Infection (ED), Urinary Tract Infection in Older Adults (ED) Referrals: Trey Irizarry MD [Primary Care Provider] - 2 Days Additional Instructions: You were seen in the emergency department for urinary frequency and fever at home. Your labs showed an infection in your urine. You were given an antibiotic here. Please take Keflex 4 times a day for 10 days. Please return for worsening symptoms, decreased in your urine, continued fevers, if you're unable to eat or drink, vomiting or if you're concerned. This infection can spread quickly to your kidneys so if you appear worse please return to the emergency department. If any studies were not completed at the time of discharge you will be called with the relevant results. Please follow up with your primary care doctor in next 2-3 days and return to emergency department for worsening or concerning symptoms. It was a pleasure taking care of you today. - Billing Disposition and Condition Condition: STABLE Disposition: Home - Attestation Statements Document Initiated by [place]: Yes Documenting Scribe: Jef Zuñiga Provider For Whom Elifibe is Documenting (Include Credential): Merle Mckeon MD Scribe Attestation: Jef Daily, scribed for Merle Mckeon MD on 04/02/19 at 0641. Scribe Documentation Reviewed: Yes Provider Attestation: The documentation as recorded by the Jef payne accurately reflects the service I personally performed and the decisions made by , Merle Mckeon MD Status of Scribe Document: Viewed
[2019-04-02 04:28] LABS: ABS Basophils 0.1 10^3/ul (0-0.2); ABS Lymphocytes 0.7 10^3/ul (1.0-4.8); ABS Neutrophils 15.8 10^3/ul (1.5-7.7); Eosinophil % 0.2 %; Hematocrit 37 % (42-52); Hemoglobin 12.8 g/dL (14.0-18.0); Lymphocyte % 4.2 %; Mean Corpuscular HGB Conc 34 g/dL (31-36); Mean Corpuscular Hemoglobin 32 pg (27-31); Mean Corpuscular Volume 93 fL (80-94); Mean Platelet Volume 8.9 fL (7.4-10.4); Platelet Count 190 10^3/uL (150-450); Red Blood Count 3.98 10^6 /uL (4.18-5.48); Red Cell Distribution Width 13 % (10-15); White Blood Count 17.7 10^3/uL (3.5-10.8)
[2019-04-02] MEDS ORDERED: cefTRIAXone(*) 1 GM in NS 0.9% 50 ML* 50 ML IVPB ONE (04:35)
[2019-04-02 04:43] LABS: Albumin/Globulin Ratio 1.2 (1-3); BUN/Creatinine Ratio 18.6 (8-20); Calcium 9.2 mg/dL (8.6-10.3); EGFR African American 53.2 (>60); Globulin 3.3 g/dL (2-4); Potassium 3.8 mmol/L (3.5-5.0); Total Bilirubin 0.9 mg/dL (0.2-1.0); Total Protein 7.3 g/dL (6.4-8.9)
[2019-04-02] MEDS ORDERED: NS 0.9% 1000 ML** 1,000 ML IV ONE (04:46)
[2019-04-02 06:29] LABS: Urine Appearance Turbid; Urine Bacteria Absent (Absent); Urine Bilirubin Negative (Negative); Urine Blood 3+ (Negative); Urine Color Yellow; Urine Glucose Negative (Negative); Urine Ketones Negative (Negative); Urine Nitrite Negative (Negative); Urine Protein 2+(100 mg/dL) (Negative); Urine Red Blood Cell 3+(>10/hpf) (Absent); Urine Specific Gravity 1.012 (1.010-1.030); Urine Urobilinogen Negative (Negative); Urine White Blood Cell 3+(>20/hpf) (Absent)
--- NOTE | 2019-04-04 05:53 | ED ---
Imaging and Labs Follow Up Follow Up Type: Labs/Cultures Labs/Culture Result: patient urine culture preliminary grew e coli 25-50,000. patient was placed on keflex Patient Communication/Plan: will wait for final culture for sensitivity Provider Diagnoses: Pyelonephritis, UTI (urinary tract infection)
== END 2019-04-02 06:45 | disposition home or self-care (01) ==
LOC: ED 03:54
DX: N12 Tubulo-interstitial nephritis, not specified as acute or chronic (principal); N39.0 Urinary tract infection, site not specified; I25.10 Atherosclerotic heart disease of native coronary artery without angina pectoris; E03.9 Hypothyroidism, unspecified; E11.9 Type 2 diabetes mellitus without complications; E78.00 Pure hypercholesterolemia, unspecified; I10 Essential (primary) hypertension; K21.9 Gastro-esophageal reflux disease without esophagitis; Z95.5 Presence of coronary angioplasty implant and graft; Z87.891 Personal history of nicotine dependence; Z88.8 Allergy status to other drugs, medicaments and biological substances; Z79.82 Long term (current) use of aspirin; Z79.84 Long term (current) use of oral hypoglycemic drugs; Z79.890 Hormone replacement therapy; Z79.899 Other long term (current) drug therapy
CPT/HCPCS: 36415; 80053; 81003; 81015; 85025; 87077; 87086; 87186; 96361; 96365; 99282; J0696

== ENCOUNTER 2019-05-15 15:06 | Emergency (ER) | payer BC ==
--- OUTSIDE RECORDS SUMMARY | 2019-05-15 15:12 | XMS REPORT | Continuity of Care Document ---
:1945 External Reference #:[id number] Author Name Briseida Nelson M.D. (transmitted by agent of provider Carla Flores) Address [address] [place] [address] Care Team Providers Name Role Phone Trey Irizarry MD - Family Medicine Care Team Information Transport Aide Problems Active Problems Provider Date Obstructive sleep apnea syndrome Onset: 09/10/2003 Note: thinks it helps Diabetes mellitus Mookie Cardenas MD Onset: 04/24/1995 Note: as of 2017 never insulin; (after ice cream 04/23/18 AM 165) Polyp of colon Mookie Cardenas MD Onset: 06/08/2013 Note: 5 TAs Diabetic renal disease Mookie Cardenas MD Onset: 04/24/2011 Note: Cr 1.1 BUN 27 June 2013; Coronary atherosclerosis Mookie Cardenas MD Onset: 10/22/2001 Note: stented LAD Dr Pa - follows at [facility] Localized, primary osteoarthritis of the pelvic Briseida Nelson M.D. Onset: 04/2019 region and thigh Localized, primary osteoarthritis Briseida Nelson M.D. Onset: 04/19/2019 Social History Type Date Description Comments Sex Unknown ETOH Use Drinks 2 Alcoholic Beverages Per Week Tobacco Use Start: Unknown End: Patient is a former smoker Unknown Smoking Status Reviewed: 04/19/19 Patient is a former smoker Exercise Type/Frequency Does not exercise Allergies, Adverse Reactions, Alerts Active Allergies Reaction Severity Comments Date Clonidine 07/17/2016 Niacin 07/17/2016 Calcium Channel Blockers 07/17/2016 Medications Active Medications SIG Qnty Indications Ordering Provider Date Levothyroxine Sodium 1 by mouth every Unknown 100mcg day Tablets Metformin HCL ER 4 by mouth twice Unknown 500mg a day Tablets ER 24HR Glipizide ER 2 by mouth two Unknown 5mg Tablets ER times per day 24HR Labetalol HCL by mouth three Unknown 600mg Tablets times a day Hyralazine 3x a day Unknown 100mg Chlorthalidone 2 by mouth every Unknown 25mg Tablets day Accupril 2 tablets by Unknown 40mg Tablets mouth every day Aspir-Low 1 by mouth every Unknown 81mg Tablets DR day Lipitor 1 by mouth at Unknown 40mg Tablets bedtime Lumigan 1 drop once Unknown 0.01% Solution daily Omeprazole 1 by mouth every Unknown 40mg Capsules DR day Medications Administered in Office Medication SIG Qnty Indications Ordering Provider Date Depomedrol 40MG Briseida Nelson M.D. 04/19/2019 Injection Immunizations Description No Information Available Vital Signs Date Vital Result Comment 04/19/2019 11:58am Height 66 inches 5'6" Weight 245.50 lb Heart Rate 70 /min BP Systolic 128 mmHg BP Diastolic 70 mmHg Respiratory Rate 12 /min Pain Level 4 BMI (Body Mass Index) 39.6 kg/m2 02/22/2019 11:11am Height 66 inches 5'6" Weight 256.00 lb Heart Rate 66 /min BP Systolic Sitting 122 mmHg BP Diastolic Sitting 60 mmHg O2 % BldC Oximetry 97 % BMI (Body Mass Index) 41.3 kg/m2 Results Description No Information Available Procedures Date Code Description Status 04/19/2019 13686 Inject/Drain Joint/Bursa Major W/O US Completed 02/06/2017 68439879 Colonoscopy Completed 01/22/2017 36663805 Colonoscopy Completed 06/08/2013 80832420 Colonoscopy Completed 04/25/2003 [id number] Colonoscopy Completed Medical Devices Description No Information Available Encounters Type Date Location Provider Dx Diagnosis Office Visit 04/19/2019 [facility] Briseida Nelson, M25.552 Pain in left hip 11:20a at [place] [facility] M25.562 Pain in left knee M17.12 Unilateral primary osteoarthritis, 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 04/19/2019 M25.562 Pain in left knee Briseida Nelson M.D. 04/19/2019 M17.12 Unilateral primary osteoarthritis, Briseida Nelson M.D. left knee 04/19/2019 M16.12 Unilateral primary osteoarthritis, Briseida Nelson M.D. left hip 04/19/2019 E11.9 Type 2 diabetes mellitus without Briseida Nelson M.D. complications 04/19/2019 E66.01 Morbid (severe) obesity due to Briseida Nelson M.D. excess calories 02/22/2019 G47.33 Obstructive sleep apnea (adult) [facility] Ramirez DNP, [facility], (pediatric) [facility] Plan of Treatment 04/19/2019 - Briseida Nelson M.D.M25.552 Pain in left hipNew Xrays:Hip Left 2 Views And Pelvis [id number] - [id number], Ordered: 04/19/19Follow up:Follow up: 4 sototH26.562 Pain in left kneeNew Xrays:Knee 3 Views LT, Ordered: M17.12 Unilateral primary osteoarthritis, left kneeM16.12 Unilateral primary osteoarthritis, left hipE11.9 Type 2 diabetes mellitus without [id number] Morbid (severe) obesity due to excess calories Functional Status Description No Information Available Mental Status Description No Information Available Referrals Description No Information Available
--- OUTSIDE RECORDS SUMMARY | 2019-05-15 15:12 | XMS REPORT | Summary of Care ---
:1945 Author Organization [facility] Address 1 [facility] [place] [address] Care Team Providers Name Role Phone Trey Irizarry MD Primary Care Provider Roderick Franklin OD Primary Chief Supply Chain Officer/Paint Mixer Hand Hermilo Gonzalez MD Secondary Chief Supply Chain Officer/Paint Mixer Hand Hillary Santana MD Tertiary Chief Supply Chain Officer/Paint Mixer Hand Reason for Visit Reason Comments Follow-up 9 MOnth Visit Hypertension Diabetes Encounter Details Date Type Department Care Team Description 04/09/2019 Office Visit [facility] Nicolasa Barnes, Stage 3 chronic kidney disease (HCC) (Primary Dx); 1 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, without long-term current use of insulin (HCC); [place] [id number] 1 [facility] Essential hypertension [phone] [place] [address] Allergies Active Allergy Reactions Severity Noted Date Comments Calcium Channel Blockers Swelling 10/25/2011 Edema Clonidine RESEARCH PROJECT COORDINATOR Reaction 12/02/2011 Niacin Other 12/30/2007 Muscle aches Spironolactone GI Reaction 07/20/2018 Nausea, diarrhea documented as of this encounter (statuses as of 04/09/2019) Medications Medication Sig Dispensed Refills Start Date End Date Status ASPIRIN 81 MG Oral Take 81 mg 0 Active Tab by mouth DAILY. glipiZIDE Take 10 mg 0 Active (GLUCOTROL XL) 5 MG by mouth Oral TABLET SR 24 TWICE DAILY. HR Multiple Take 1 Each 0 Active Vitamins-Minerals by mouth Oral Pack DAILY. Multi vit package () levothyroxine Take 100 mcg 0 Active (SYNTHROID) 100 MCG by mouth Oral Tab BEFORE BREAKFAST. metFORMIN HCL 500 Take 2 Tabs 0 Active MG Oral TABLET SR by mouth 24 HR TWICE DAILY. labetalol TAKE THREE 270 Tab 3 08/03/2014 Active (NORMODYNE) 200 MG TABLETS BY Oral Tab MOUTH THREE TIMES DAILY chlorthalidone Take 2 Tabs 180 Tab 3 12/30/2014 Active (HYGROTON) 25 MG by mouth Oral DAILY. TabIndications: Uncontrolled hypertension bimatoprost Place 1 Drop 3 Bottle 4 12/11/2016 Active (LUMIGAN) 0.01 % in both eyes Ophthalmic EVERY SolutionIndications EVENING. : Primary open-angle glaucoma, bilateral, mild stage acetaminophen Take 1,000 0 Active (TYLENOL) 500 MG mg by mouth Oral Tab EVERY SIX HOURS NEEDED for Pain. atorvastatin TAKE 1 90 Tab 3 01/11/2019 Active (LIPITOR) 20 MG TABLET BY Oral Tab MOUTH ONCE DAILY hydrALAZINE HCl 100 TAKE 1 270 Tab 3 01/25/2019 Active MG Oral Tab TABLET BY MOUTH THREE TIMES DAILY quinapril TAKE 1 180 Tab 3 02/22/2019 Active (ACCUPRIL) 40 MG TABLET BY Oral Tab MOUTH TWICE DAILY cephalexin (KEFLEX) Take 500 mg 0 Active 500 MG Oral Cap by mouth FOUR TIMES DAILY. spironolactone Take 25 mg 0 Discontinued (ALDACTONE) 25 MG by mouth 9 (Therapy Oral Tab DAILY. 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 Pa) multivessel disease and normal renal arteries a 3.0mm velocity stent to the right coronary artery, & a 2.5mm velocity stent to the left anterior descending, & a 2.5mm velocity stent to the diagonal. Hyperlipidemia 07/28/2007 Pseudophakia, both eyes documented as of this encounter (statuses as of 04/09/2019) Resolved Problems Problem Noted Date Resolved Date Nuclear age-related cataract, left eye 10/20/2017 12/04/2017 Macular hemorrhage of right eye 08/08/2011 10/20/2017 Hyperlipidemia 09/24/2010 09/24/2010 documented as of this encounter (statuses as of 04/09/2019) Social History Tobacco Use Types Packs/Day Years Used Date Former Smoker Smokeless Tobacco: Never Used Comments: YEARS AGO Alcohol Use Drinks/Week oz/Week Comments Yes 0 Standard drinks or equivalent 0.0 occasional wine or beer Sex Assigned at Date Recorded Not on file Job Start Date Occupation Industry Not on file Not on file Not on file Travel History Travel Start Travel End No recent travel history available. documented as of this encounter Last Filed Vital Signs Vital Sign Reading Time Taken Comments Blood Pressure 114/52 04/09/2019 10:50 AM EDT Pulse 76 04/09/2019 10:50 AM EDT Temperature - - Respiratory Rate - - Oxygen Saturation - - Inhaled Oxygen Concentration - - Weight 110.5 kg (243 lb 8 oz) 04/09/2019 10:50 AM EDT Height 167.6 cm (5' 6") 04/09/2019 10:50 AM EDT Body Mass Index 39.3 04/09/2019 10:50 AM EDT documented in this encounter Patient Instructions Patient InstructionsNicolasa Barnes PA-C - 04/09/2019 11:00 AM EDTGoals for preservation of kidney function: - good blood pressure control. Goal is <140/90 (call if consistently less than 110/60). - good diabetes control. Goal A1c is < 7.0. avoid regular sodas, juices. Try Halo Top ice cream instead of regular ice cream. - good hydration. Aim for at least 60 ounces of fluid daily - doesn't have to be JUST water. - Avoid [id number] (OTC) and prescription pain relievers that contain non- steroidal anti-inflammatory drugs (NSAIDs) such as: Aleve/Naprosyn (naproxen), Advil/Motrin (ibuprofen), Celebrex (celecoxib), Voltaren (diclofenac), Toradol ( ketorolac), Relafen (nabumetone), etc. Tylenol (acetaminophen) is safe to use as directed on bottle; do not exceed 4000 mg daily. Follow up in 6 months with blood work prior. Call sooner with any concerns. documented in this encounter Progress Notes Nicolasa Barnes PA-C - 04/09/2019 11:00 AM EDT PATIENT: Gómez Monreal : 1945 DATE OF SERVICE: 04/09/2019 REFERRING PRACTITIONER: Juan Jose PRIMARY CARE PROVIDER: Trey Irizarry Chief Complaint Patient presents with Follow-up 9 MOnth Visit Hypertension Diabetes HISTORY OF PRESENT ILLNESS: Gómez Monreal is a 73-y.o. male who presents for follow up of chronic kidney disease stage III andresistant hypertension. His most recent creatinine level was 1.4. Baseline creatinine is 1.2-1.5. His estimated glomerular filtration rate is 50. The patient has been feeling well overall but has been battling sciatica. Has been taking ibuprofen q 4 hours the last 2 weeks due to the above. Notes he drinks only a few cups of fluid daily. Not checking blood pressure or glucose at home. Urinating well - no gross hematuria, dysuria. Recently seen in ER in [place] for urinary frequency and mild dysuria, positive UTI being treated with Keflex. Symptoms improved with therapy. He denies shortness of breath, chest pain, abdominal pain, flank pain, dysuria, gross hematuria, constipation, diarrhea or edema . Past Medical History: Diagnosis Date CAD 07/28/2007 GERD (gastroesophageal reflux disease) Hyperlipidemia 07/28/2007 Obesity, unspecified 12/30/2007 Sleep apnea on cpap Surgery, elective Type II or unspecified type diabetes mellitus without mention of complication, not stated as uncontrolled 12/30/2007 Unspecified essential hypertension 12/30/2007 with normal renals Unspecified hypothyroidism 12/30/2007 Past Surgical History: Procedure Laterality Date BALO ANGIOP ICRA PRQ CARDIAC CATH 10/08/01, 08/04/01 08/04/01-LEFT S/P STENT PLACEMENT-DYSPNEA CATARACT/LENS SURGERY IRIDOTOMY / IRIDECTOMY BY LASER Right 01/02/2017 Regis Montalvo MD IRIDOTOMY BY LASER - OS - LEFT EYE Left 01/16/2017 Regis Montalvo MD OPEN FRACTURE REDUCTION Pelvis WI OPEN CORONARY ENDARTERECTOMY 10.08.01 left heart WI REMV CATARACT EXTRACAP,INSERT LENS Right 10/20/2017 Procedure: PHACOEMULSIFICATION WITH INTRA OCULAR LENS; Surgeon: Robert Montalvo MD; Location: [facility] [place] REMV CATARACT EXTRACAP,INSERT LENS Left 12/04/2017 Procedure: PHACOEMULSIFICATION WITH INTRA OCULAR LENS; Surgeon: Robert Montalvo MD; Location: [facility] Family History Problem Relation Age of Onset Cancer Mother Aneurysm Father AAA Diabetes Brother Glaucoma No family history Macular Degeneration No family history Other Eye Problems No family history Blindness No family history Social History Tobacco Use Smoking status: Former Smoker Smokeless tobacco: Never Used Tobacco comment: YEARS AGO Substance Use Topics Alcohol use: Yes Alcohol/week: 0.0 standard drinks Comment: occasional wine or beer Current Outpatient Medications Medication Sig acetaminophen (TYLENOL) 500 MG Oral Tab Take 1,000 mg by mouth EVERY SIX HOURS NEEDED for Pain. ASPIRIN 81 MG Oral Tab Take 81 mg by mouth DAILY. atorvastatin (LIPITOR) 20 MG Oral Tab TAKE 1 TABLET BY MOUTH ONCE DAILY bimatoprost (LUMIGAN) 0.01 % Ophthalmic Solution Place 1 Drop in both eyes EVERY EVENING. cephalexin (KEFLEX) 500 MG Oral Cap Take 500 mg by mouth FOUR TIMES DAILY. chlorthalidone (HYGROTON) 25 MG Oral Tab Take 2 Tabs by mouth DAILY. glipiZIDE (GLUCOTROL XL) 5 MG Oral TABLET SR 24 HR Take 10 mg by mouth TWICE DAILY. hydrALAZINE HCl 100 MG Oral Tab TAKE 1 TABLET BY MOUTH THREE TIMES DAILY labetalol (NORMODYNE) 200 MG Oral Tab TAKE THREE TABLETS BY MOUTH THREE TIMES DAILY levothyroxine (SYNTHROID) 100 MCG Oral Tab Take 100 mcg by mouth BEFORE BREAKFAST. metFORMIN HCL 500 MG Oral TABLET SR 24 HR Take 2 Tabs by mouth TWICE DAILY. Multiple Vitamins-Minerals Oral Pack Take 1 Each by mouth DAILY. Multi vit package () quinapril (ACCUPRIL) 40 MG Oral Tab TAKE 1 TABLET BY MOUTH TWICE DAILY No current facility-administered medications for this visit. Allergies Allergen Reactions Calcium Channel Blockers Swelling Edema Clonidine RESEARCH PROJECT COORDINATOR Reaction Niaspan [Niacin] Other Muscle aches Spironolactone GI Reaction Nausea, diarrhea REVIEW OF SYSTEMS: A review of systems was negative except for as noted in the HPI. PHYSICAL EXAMINATION: VITALS: BP 114/52 (BP Location: Right arm, Patient Position: Sitting) | Pulse 76 | Ht 5' 6" (1.676 m) | Wt 243 lb 8 oz (110.5 kg) | BMI 39.30 kg/m GENERAL: No acute distress; moderately obese PULMONARY: Clear to auscultation bilaterally CARDIOVASCULAR: Regular rate and rhythm; no murmurs, no rubs, no gallops ABDOMEN: truncal adiposity present MUSCULOSKELETAL: no clubbing, cyanosis or edema NEUROLOGICAL: Alert and oriented x 3 PSYCH: Appropriate mood and affect Phosphorus Date/Time Value Ref Range Status 04/09/2019 10:31 AM 3.1 2.5 - 4.5 MG/DL Final Uric Acid Date/Time Value Ref Range Status 04/27/2015 02:08 PM 7.6 3.5 - 8.5 mg/dL Final 12/04/2012 11:32 AM 7.9 3.5 - 8.5 mg/dl Final Microalbumin Ratio Date/Time Value Ref Range Status 07/20/2018 03:26 PM 39 (H) <30 MG/G Final 07/20/2018 03:26 PM Low Malb or CRE Final IMPRESSION: ICD-9-CM ICD-10-CM 1. Stage 3 chronic kidney disease (HCC) 585.3 N18.3 URINE DIP CLINITEK (AMB POCT ) RENAL FAILURE PANEL CBC WITH DIFFERENTIAL INTACT PTH VITAMIN D 25 HYDROXY ([place]) MICROALBUMIN, RANDOM URINE W/ CREATININE 2. 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 Essential hypertension 401.9 I10 PLAN: Gómez Monreal is a 73-y.o. year-old male with stage III chronic kidney disease and resistant hypertension. 1. CKD Stage G3aA2: Gómez looks well. Creatinine remains stable. Advised to stop NSAIDs and increasehydration. 2. HTN: excellent control 3. Volume: euvolemic 4. Bone and Mineral Metabolism: PO4, Ca normal. PTH mildly elevated but improved. Vitamin D good. 5. Anemia of CKD: stable hgb 6. Electrolytes: normal 7. Nutrition: well nourished 8. Access: not indicated 9. Lipids: defer to primary provider I spent a total of 25 minutes with this patient, over 50% of which was devoted to counseling and coordination of care. Follow up: 6 months Author: Nicolasa Barnes PA-C 04/09/2019 11:44 documented in this encounter Plan of Treatment Date Type Specialty Care Team Description 04/28/2019 IPPR Ophthalmology 04/28/2019 Ocular Visit Ophthalmology Robert Montalvo MD 1 [place] [id number] 10/08/2019 Office Visit Nephrology Liang Bhakta MD 1 [place] [address] 02/02/2020 Orders Only Cardiology 02/02/2020 Office Visit Cardiology Charlette Mora CRNP 1 [place] [address] Name Type Priority Associated Diagnoses Order Schedule URINE DIP CLINITEK (AMB POCT Routine Stage 3 chronic kidney Ordered: 2018 POCT) disease (HCC) RENAL FAILURE PANEL Lab Routine Stage 3 chronic kidney Expected: 04/09/2019 disease (HCC) (Approximate), Expires: 04/09/2020 CBC WITH DIFFERENTIAL Lab Routine Stage 3 chronic kidney Expected: 2018 disease (HCC) (Approximate), Expires: 04/09/2020 INTACT PTH Lab Routine Stage 3 chronic kidney Expected: 04/09/2019 disease (HCC) (Approximate), Expires: 04/09/2020 VITAMIN D 25 HYDROXY Lab Routine Stage 3 chronic kidney Expected: 2018 ([place]) disease (HCC) (Approximate), Expires: 10/06/2019 MICROALBUMIN, RANDOM URINE Lab Routine Stage 3 chronic kidney Expected: 06/2018 W/ CREATININE disease (HCC) (Approximate), Expires: 10/06/2019 Health Maintenance Due Date Last Done Comments MEDICARE ANNUAL WELLNESS 1945 VISIT DEPRESSION SCREENING 1958 HIV SCREENING 1961 FOOT EXAM 1964 HEPATITIS C SCREENING 1986 COLONOSCOPY SCREENING 1996 ZOSTER IMMUNIZATION SERIES 1996 (1 of 2) AAA SCREENING/SURVEILLANCE 2011 09/03/2001 FALL RISK ASSESSMENT 2011 PNEUMOCOCCAL 65+YRS (1 of 2 2011 - PCV13) HEMOGLOBIN A1C 10/26/2015 04/27/2015 INFLUENZA VACCINE (#1) 2019 LIPID DISORDER SCREENING 01/12/2020 01/11/2019, 10/06/2001 Diabetic Eye Exam 06/16/2020 06/16/2018, 06/16/2018, 01/27/2018, Additional history exists HPV IMMUNIZATION SERIES Aged Out No longer eligible based on patient's age to complete this topic MENINGOCOCCAL VACCINE IMM Aged Out No longer eligible based on patient's age to complete this topic documented as of this encounter Implants Implanted Type Area Apparel Fashion Designer Device Shelf Model / Serial Identifier Expiration Date / Lot Iol, [id number] 24.5 Diopter - [id number] Right: WINDY [id number] / Implanted: Qty: 1 on 10/20/2017 by Robert Montalvo MD at [facility] [id number] / Iol, [id number] 24.5 Diopter - [id number] [id number] / Implanted: Qty: 1 on 12/04/2017 by Robert Montalvo MD at [facility] [id number] / documented as of this encounter Results Not on filedocumented in this encounter Visit Diagnoses Diagnosis Stage 3 chronic kidney disease (HCC) - Primary 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
[2019-05-15 15:21] VITALS: BP 138/65
--- NOTE | 2019-05-15 22:59 | UC ---
GI Bleed HPI - HPI Summary HPI Summary: PATIENT COMPLAINS OF SEVERAL EPISODES OF BRIGHT RED BLOOD PER RECTUM WHEN HAVING A BOWEL MOVEMENT. IS CURRENTLY TAKING CIPROFLOXACIN FOR A URINARY TRACT INFECTION AND WONDERS IF IT IS DUE TO THIS MEDICATION. HE IS ALSO COMPLAINING OF GENERAL FATIGUE FOR THE PAST FEW WEEKS AND IS CONCERNED ABOUT THIS. NO FEVER. NO NAUSEA/VOMITING. NO ABDOMINAL PAIN. - History Of Current Complaint Chief Complaint: UCGI Stated Complaint: RECTAL BLEEDING Time Seen by Provider: 05/15/19 16:30 Hx Obtained From: Patient, Family/Information Coordinator - Severity: Bright Red Blood per Rectum Severity Initially: Mild Severity Currently: Mild Pain Intensity: 0 Pain Scale Used: 0-10 Numeric Associated Pain: None Character: Not Applicable Aggravating Factor(s): Bowel Movement Associated Signs And Symptoms: Negative: Back Pain, Weakness, Syncope, Nausea, Rectal Pain - Allergies/Home medications Allergies/Adverse Reactions: Allergies Allergy/AdvReac Type Severity Reaction Status Date / Time clonidine Allergy Unknown Verified 05/15/19 15:21 Reaction Details diltiazem Allergy Swelling Verified 05/15/19 15:21 niacin Allergy Muscle Ache Verified 05/15/19 15:21 Home Medications: Home Medications Ciprofloxacin TAB* [Cipro 500 MG TAB*] 1 tab PO BID 05/15/19 [History Confirmed 05/15/19] PMH/Surg Hx/FS Hx/Imm Hx Endocrine History: Diabetes, Hypothyroidism Cardiovascular History: Hypertension - Surgical History Surgical History: Yes Surgery Procedure, Year, and Place: Fractured pelvis as a child 1962.; Heart Cath 07/29/01 and 3 stents. appendectomy in 1964 GALLBLADDER REMOVED 07/2016. EGD - 04/26/2018 - Family History Known Family History: Positive: Hypertension, Other - Negative anesthesia reaction - Social History Alcohol Use: Occasionally Substance Use Type: None Smoking Status (MU): Former Smoker Amount Used/How Often: smoked for approx 30 years 1-2ppd When Did the Patient Quit Smoking/Using Tobacco: 30 years ago - Immunization History Most Recent Influenza Vaccination: 2012 Most Recent Tetanus Shot: within last couple years Most Recent Pneumonia Vaccination: last year Review of Systems All Other Systems Reviewed And Are Negative: Yes Constitutional: Positive: Fatigue ENT: Positive: Negative Respiratory: Positive: Negative Gastrointestinal: Positive: Other - BRBPR Genitourinary: Positive: Negative Physical Exam Triage Information Reviewed: Yes Appearance: Well-Appearing, No Pain Distress, Well-Nourished Vital Signs: Initial Vital Signs Temp 98.3 F 05/15/19 15:17 Pulse 73 05/15/19 15:17 Resp 16 05/15/19 15:17 BP 138/65 05/15/19 15:17 Pulse Ox 99 05/15/19 15:17 Vital Signs Reviewed: Yes Eyes: Positive: Conjunctiva Clear ENT: Positive: Hearing grossly normal Neck: Positive: Supple Respiratory Exam: Normal Cardiovascular Exam: Normal Abdomen Description: Positive: Nontender, Soft. Negative: CVA Tenderness (R), CVA Tenderness (L), Distended, Guarding Bowel Sounds: Positive: Present Musculoskeletal: Positive: No Edema Neurological: Positive: Alert Psychological: Positive: Age Appropriate Behavior Skin: Negative: Rashes Bleed Course/Dx - Course Course Of Treatment: UNCLEAR ETIOLOGY OF SYMPTOMS TODAY. DISCUSSED THAT GASTROINTESTINAL BLEEDING DUE TO CIPROFLOXACIN IS EXTREMELY UNLIKELY. PATIENT DECLINES RECTAL EXAM. THE REMAINDER OF HIS EXAM IS UNREMARKABLE. PATIENT COMPLAINING OF SEVERAL EPISODES OF BRIGHT RED BLOOD PER RECTUM ALONG WITH SEVERAL WEEKS OF OVERARCHING FATIGUE. CBC, CMP, TSH DRAWN TODAY. DISCUSSED TRANSFER TO THE ER FOR FURTHER EVALUATION. PATIENT PREFERS TO FOLLOW-UP AN OUTPATIENT. HE WILL CALL GI FIRST THING Friday. ADVISED TO GO DIRECTLY TO THE ER WITHOUT FAIL IF HE HAS RECURRENT BRIGHT RED BLOOD PER RECTUM, NAUSEA/VOMITING, PAIN, FEVER OR ANY OTHER CONCERNING SYMPTOMS. - Differential Dx/Diagnosis Provider Diagnosis: BRBPR (bright red blood per rectum) Discharge ED - Sign-Out/Discharge Documenting (check all that apply): Patient Departure All imaging exams completed and their final reports reviewed: No Studies - Discharge Plan Condition: Stable Disposition: HOME Patient Education Materials: Rectal Bleeding (ED) Referrals: [facility] [Provider Group] - 3 Days Trey Irizarry MD [Primary Care Provider] - If Needed Additional Instructions: CALL GI FIRST THING Friday TO SCHEDULE AN APPOINTMENT TO FURTHER EVALUATE YOUR RECTAL BLEEDING. GO TO THE ER WITHOUT FAIL IF YOU DEVELOP WORSENING BLEEDING FROM THE RECTUM, ABDOMINAL PAIN, FEVER, NAUSEA OR ANY OTHER CONCERNING SYMPTOMS. BLOOD COUNT, METABOLIC PANEL AND THYROID CHECKED TODAY. WE WILL CALL YOU WITH ANY ABNORMAL RESULTS. AVOID NSAIDS FOR NOW. - Billing Disposition and Condition Condition: STABLE Disposition: Home
[2019-05-16 10:38] LABS: Hematocrit 34 % (42-52); Hemoglobin 11.6 g/dL (14.0-18.0); Mean Corpuscular HGB Conc 35 g/dL (31-36); Mean Corpuscular Hemoglobin 33 pg (27-31); Mean Corpuscular Volume 95 fL (80-94); Platelet Count 224 10^3/uL (150-450); Red Blood Count 3.54 10^6 /uL (4.18-5.48); Red Cell Distribution Width 14 % (10-15); White Blood Count 8.2 10^3/uL (3.5-10.8)
[2019-05-16 11:03] LABS: TSH (Thyroid Stimulating Horm) 4.24 mcIU/mL (0.34-5.60)
[2019-05-16 11:05] LABS: ABS Basophils 0.1 10^3/ul (0-0.2); ABS Eosinophils 0.1 10^3/ul (0-0.6); ABS Lymphocytes 1.4 10^3/ul (1.0-4.8); ABS Monocytes 0.5 10^3/ul (0-0.8); ABS Neutrophils 6.1 10^3/ul (1.5-7.7); Eosinophil % 1.4 %; Lymphocyte % 17.5 %; Nucleated Red Blood Cells % 0.1
[2019-05-16 11:52] LABS: Albumin 3.9 g/dL (3.2-5.2); Calcium 9.3 mg/dL (8.6-10.3); Potassium 4.1 mmol/L (3.5-5.0); Total Bilirubin 0.4 mg/dL (0.2-1.0)
[2019-05-16 11:58] LABS: Albumin/Globulin Ratio 1.6 (1-3); BUN/Creatinine Ratio 22.9 (8-20); EGFR African American 54.4 (>60); Globulin 2.5 g/dL (2-4); Total Protein 6.4 g/dL (6.4-8.9)
--- NOTE | 2019-05-16 16:59 | UC ---
- Progress Note Progress Note: CBC CMP TSH come back from May 15, 2019. Hemoglobin and hematocrit are low at 11.6 and 34 respectively. When compared to April 02, 2019 hemoglobin and hematocrit were 12.8 and 37. BUN creatinine are elevated at 35 and 1.53. When compared April 02, 2019 BUN and creatinine were 29 and 1.56. Glucose elevated at 200. When compared to April 02, 2090 T and glucose was 189. TSH is normal at 4.24. Nursing to call patient inform the patient of the results. Patient was seen here for GI bleed and therefore the hemoglobin being lower since April 02, 2019 is a potential concern however is not extremely low at this time. And the provider's chart from May 15, 2019. States the patient will follow- up with GI tomorrow. If patient's continued to bleed her face got worse she should go the emergency department otherwise he should follow up with GI tomorrow. Course/Dx - Diagnoses Provider Diagnoses: BRBPR (bright red blood per rectum) Discharge ED - Sign-Out/Discharge Documenting (check all that apply): Patient Departure All imaging exams completed and their final reports reviewed: No Studies - Discharge Plan Condition: Stable Disposition: HOME Patient Education Materials: Rectal Bleeding (ED) Referrals: [facility] [Provider Group] - 3 Days Trey Irizarry MD [Primary Care Provider] - If Needed Additional Instructions: CALL GI FIRST THING Friday TO SCHEDULE AN APPOINTMENT TO FURTHER EVALUATE YOUR RECTAL BLEEDING. GO TO THE ER WITHOUT FAIL IF YOU DEVELOP WORSENING BLEEDING FROM THE RECTUM, ABDOMINAL PAIN, FEVER, NAUSEA OR ANY OTHER CONCERNING SYMPTOMS. BLOOD COUNT, METABOLIC PANEL AND THYROID CHECKED TODAY. WE WILL CALL YOU WITH ANY ABNORMAL RESULTS. AVOID NSAIDS FOR NOW. - Billing Disposition and Condition Condition: STABLE Disposition: Home
== END 2019-05-15 17:10 | disposition home or self-care (01) ==
LOC: UCEAST 15:06
DX: K62.5 Hemorrhage of anus and rectum (principal); I10 Essential (primary) hypertension; E11.9 Type 2 diabetes mellitus without complications; Z88.8 Allergy status to other drugs, medicaments and biological substances; Z87.891 Personal history of nicotine dependence; R53.83 Other fatigue
CPT/HCPCS: 36415; 80053; 84443; 85025; 99212; G0463

== ENCOUNTER 2024-01-03 08:32 | Observation (INO) ==
[2024-01-03 10:21] LABS: ABS Lymphocytes 0.4 10^3/uL (1.0-4.8); ABS Monocytes 0.8 10^3/uL (0.0-1.1); ABS Neutrophils 13.6 10^3/uL (1.5-7.6); Eosinophil % 0.2 %; Hematocrit 35.3 % (38-53); Hemoglobin 11.7 g/dL (13.2-16.3); Lymphocyte % 2.9 %; Mean Corpuscular Hemoglobin 31.4 pg (27-33); Mean Corpuscular Hgb Conc 33.2 g/dL (31-36); Mean Corpuscular Volume 94.6 fL (80-97); Mean Platelet Volume 9.2 fL (7.5-11.2); Platelet Count 197 10^3/uL (150-450); Red Blood Count 3.73 10^6/uL (4.06-5.63); Red Cell Distribution Width 12.9 % (12-17); White Blood Count 14.8 10^3/uL (3.6-10.2)
[2024-01-03 10:28] LABS: Activated Partial Thrombo Time 28.2 seconds (26.0-38.0); INR 1.01 (0.83-1.13)
[2024-01-03 10:36] LABS: Urine Appearance Clear; Urine Bilirubin Negative (Negative); Urine Blood Negative (Negative); Urine Color Light-Yellow; Urine Glucose Negative (Negative); Urine Ketones Negative (Negative); Urine Nitrite Negative (Negative); Urine Protein Trace (Negative); Urine Specific Gravity 1.013 (1.002-1.030); Urine Urobilinogen Negative (Negative); Urine pH 5.5 (5.0-8.0)
[2024-01-03] MEDS: cefTRIAXone 1 gm/50 mL D5W 1 GM/50 ML BAG IV ONE (11:01)
[2024-01-03 11:28] LABS: Albumin 4.1 g/dL (3.2-5.2); Albumin/Globulin Ratio 1.4 (1-3); C Reactive Protein 10.85 mg/L (<8.01); Calcium 9.1 mg/dL (8.6-10.3); Creatinine, Serum 1.74 mg/dL (0.67-1.17); Globulin 2.9 g/dL (2-4); Potassium 3.9 mmol/L (3.5-5.0); Total Bilirubin 0.7 mg/dL (0.2-1.0); eGFR CKD-EPI 39.9 (>60)
[2024-01-03] MEDS: Azithromycin 500 mg/250 ml NS 500 MG/250 ML BAG IVPB ONE (11:30)
[2024-01-03 11:38] LABS: Urine Bacteria Absent /HPF (Absent); Urine Red Blood Cell Trace(0-2/hpf) /HPF (0-Trace); Urine Squamous Epithelial Cell Present /HPF (Absent); Urine White Blood Cell 1+(6-10/hpf) /HPF (0-Trace)
[2024-01-03 12:03] LABS: High Sensitivity Troponin 1 Hr 592 pg/mL (<20)
[2024-01-03] MEDS ORDERED: Dextrose 50% Syringe 50 ml 25 GM/50 ML SYRINGE IV PUSH PRN (14:55)
[2024-01-03] MEDS: Lactated Ringers 1000 ml BAG 1,000 ML IV SCH (17:35)
[2024-01-03] MEDS: Aspirin EC 81 mg TAB.EC (enteric coated) PO SCH (17:40)
[2024-01-03] MEDS: Enoxaparin 40 MG/0.4 ML SYR SUBCUT SCH (18:53)
[2024-01-03] MEDS: Labetalol 300 mg TAB PO SCH (21:25)
[2024-01-03] MEDS: Latanoprost 0.005% 2.5 ml BTL BOTH EYES SCH (21:27)
[2024-01-04] MEDS: cefTRIAXone 1 gm/50 mL D5W 1 GM/50 ML BAG IV SCH (07:57)
[2024-01-04 09:31] LABS: ABS Basophils 0.1 10^3/uL (0.0-0.1); ABS Eosinophils 0.1 10^3/uL (0.0-0.5); ABS Lymphocytes 1.5 10^3/uL (1.0-4.8); ABS Monocytes 0.8 10^3/uL (0.0-1.1); ABS Neutrophils 14.1 10^3/uL (1.5-7.6); Eosinophil % 0.4 %; Hematocrit 29.2 % (38-53); Hemoglobin 10.1 g/dL (13.2-16.3); Lymphocyte % 8.8 %; Mean Corpuscular Hemoglobin 32.3 pg (27-33); Mean Corpuscular Hgb Conc 34.6 g/dL (31-36); Mean Corpuscular Volume 93.6 fL (80-97); Platelet Count 160 10^3/uL (150-450); Red Blood Count 3.12 10^6/uL (4.06-5.63); Red Cell Distribution Width 13.3 % (12-17); White Blood Count 16.5 10^3/uL (3.6-10.2)
[2024-01-04] MEDS: Azithromycin 500 mg/250 ml NS 500 MG/250 ML BAG IVPB SCH (11:37)
[2024-01-05 06:19] LABS: ABS Basophils 0.1 10^3/uL (0.0-0.1); ABS Eosinophils 0.1 10^3/uL (0.0-0.5); ABS Lymphocytes 1.4 10^3/uL (1.0-4.8); ABS Monocytes 0.7 10^3/uL (0.0-1.1); ABS Neutrophils 11.2 10^3/uL (1.5-7.6); ABS Nucleated RBC 0.01 10^3/ul; Eosinophil % 0.8 %; Hematocrit 28.8 % (38-53); Hemoglobin 9.9 g/dL (13.2-16.3); Lymphocyte % 10.2 %; Mean Corpuscular Hemoglobin 32.6 pg (27-33); Mean Corpuscular Hgb Conc 34.5 g/dL (31-36); Mean Corpuscular Volume 94.3 fL (80-97); Mean Platelet Volume 8.7 fL (7.5-11.2); Platelet Count 172 10^3/uL (150-450); Red Blood Count 3.05 10^6/uL (4.06-5.63); White Blood Count 13.5 10^3/uL (3.6-10.2)
[2024-01-05 06:54] LABS: Calcium 8.4 mg/dL (8.6-10.3); Creatinine, Serum 1.86 mg/dL (0.67-1.17); Magnesium 1.7 mg/dL (1.9-2.7); Potassium 3.6 mmol/L (3.5-5.0); eGFR CKD-EPI 36.8 (>60)
[2024-01-05 09:42] VITALS: BP 145/55
[2024-01-05] MEDS: Magnesium Sulfate 2 gm BAG 2 GM/50 ML BAG IVPB ONE (10:35)
== END 2024-01-05 14:35 | disposition home or self-care (01) ==
LOC: ED 08:32 → EDHOLD 08:32 → MED 15:03
PROVIDERS: ADMIT Hospitalist; ATTEND Hospitalist